=== PATIENT | female | born 1970 | race Caucasian/White ===

== ENCOUNTER 2017-01-16 19:39 | Emergency (ER) | payer MEDICAID ==
[~2017-01-16] VITALS: Wt 93.0 kg
[~2017-01-16 19:39] MED LIST: FOLI0.4T2 PO; IRON18TA PO
[2017-01-16 22:41] LABS: URINE BLOOD (Dip) POC 3+ (NEGATIVE)
[2017-01-16] MEDS ORDERED: SOD CHLORIDE 0.9% 1,000 ML IV STA (22:48)
[2017-01-16] MEDS ORDERED: KETOROLAC 30 MG INJ IV STA (22:48)
--- NOTE | 2017-01-16 23:34 | ERD ---
ER Documentation Chief Complaint Chief Complaint painful/ fequent urination, dribbling since 4 pm HPI 46-year-old female presents here to emergency department for complaints of right flank pain dysuria and hematuria that started today. Patient describes the pain as sharp pain, 8/10 scale, radiating to the right lower abdominal area. Patient denies any fever or chills. She also has history of kidney stones and ovarian cysts before. Patient denies being . Patient denies any fever or chills. ROS All systems reviewed and are negative except as per history of present illness. Medications Home Meds Reported Medications Iron (Iron) 18 Mg Tablet, 18 MG PO DAILY 04/04/11 Folic Acid* (Folic Acid*) 0.4 Mg Tablet, 0.4 MG PO DAILY 04/04/11 Allergies Allergies: Coded Allergies: No Known Allergy (Unverified , 01/16/17) PMhx/Soc Medical and Surgical Hx: pt denies Medical Hx, pt denies Surgical Hx History of Surgery: No Anesthesia Reaction: No Hx Neurological Disorder: No Hx Respiratory Disorders: No Hx Cardiac Disorders: No Hx Psychiatric Problems: No Hx Miscellaneous Medical Probl: No Hx Alcohol Use: No Hx Substance Use: No Hx Tobacco Use: No Smoking Status: Never smoker FmHx Family History: No coronary disease, No diabetes, No other Physical Exam Vitals Vital Signs Date Time Temp Pulse Resp B/P Pulse Ox O2 Delivery O2 Flow Rate FiO2 01/16/17 19:44 98.1 84 20 175/98 97 Physical Exam GENERAL: The patient is well developed and appropriate for usual state of health, in no apparent distress. CHEST: Clear to auscultation bilaterally. There are no rales, wheezes or rhonchi. HEART: Regular rate and rhythm. No murmurs, clicks, rubs or gallops. No S3 or S4. ABDOMEN: Soft, nontender and nondistended. Good bowel sounds. No rebound or guarding. No gross peritonitis. No gross organomegaly or masses. No Luis sign or McBurney point tenderness. BACK: No midline or flank tenderness. EXTREMITIES: Equal pulses bilaterally. There is no peripheral clubbing, cyanosis or edema. No focal swelling or erythema. Full range of motion. Grossly neurovascularly intact. NEURO: Alert and oriented. Cranial nerves 2-12 intact. Motor strength in all 4 extremities with 5/5 strength. Sensation grossly intact. Normal speech and gait. SKIN: There is no apparent rash or petechia. The skin is warm and dry. HEMATOLOGIC AND LYMPHATIC: There is no evidence of excessive bruising or lymphedema. No gross cervical, axillary, or inguinal lymphadenopathy. Result Diagram: 01/16/17229901/16/172299 Results 24 hrs Laboratory Tests Test 01/16/17 22:00 01/16/17 22:40 01/16/17 23:00 Urine Color BHUMI Urine Clarity CLOUDY Urine pH 5.0 Urine Specific [place] 1.026 Urine Ketones NEGATIVEmg/dL Urine Nitrite NEGATIVEmg/dL Urine Bilirubin NEGATIVEmg/dL Urine Urobilinogen NEGATIVEmg/dL Urine Leukocyte Esterase NEGATIVELeu/ul Urine Microscopic RBC > 182/HPF Urine Microscopic WBC 5/HPF Urine Squamous Epithelial Cells FEW/HPF Urine Calcium Oxalate Crystals MODERATE/HPF Urine Mucus FEW/HPF Urine Hemoglobin 3+mg/dL Urine Glucose 1+mg/dL Urine Total Protein 2+mg/dl Bedside Urine pH (LAB) 5.5 Bedside Urine Protein (LAB) 2+ Bedside Urine Glucose (UA) Negative Bedside Urine Ketones (LAB) Trace Bedside Urine Blood 3+ Bedside Urine Nitrite (LAB) Negative Bedside Urine Leukocyte Esterase (L Negative White Blood Count 14.010^3/ul Red Blood Count 4.4410^6/ul Hemoglobin 13.6g/dl Hematocrit 39.6% Mean Corpuscular Volume 89.2fl Mean Corpuscular Hemoglobin 30.6pg Mean Corpuscular Hemoglobin Concent 34.3g/dl Red Cell Distribution Width 12.4% Platelet Count 17798^3/UL Mean Platelet Volume 10.4fl Neutrophils % 84.5% Lymphocytes % 11.5% Monocytes % 3.1% Eosinophils % 0.1% Basophils % 0.4% Nucleated Red Blood Cells % 0.0/100WBC Neutrophils # 11.910^3/ul Lymphocytes # 1.610^3/ul Monocytes # 0.410^3/ul Eosinophils # 0.010^3/ul Basophils # 0.110^3/ul Nucleated Red Blood Cells # 0.010^3/ul Sodium Level 142mmol/L Potassium Level 4.6mmol/L Chloride Level 106mmol/L Carbon Dioxide Level 24mmol/L Anion Gap 17 Blood Urea Nitrogen 13mg/dl Creatinine 0.85mg/dl Glucose Level 130mg/dl Calcium Level 10.2mg/dl Total Bilirubin 0.5mg/dl Direct Bilirubin 0.00mg/dl Indirect Bilirubin 0.5mg/dl Aspartate Amino Transf (AST/SGOT) 39IU/L Alanine Aminotransferase (ALT/SGPT) 51IU/L Alkaline Phosphatase 171IU/L Total Protein 8.1g/dl Albumin 4.2g/dl Globulin 3.90g/dl Albumin/Globulin Ratio 1.07 Lipase 202U/L Current Medications Medications (Trade) Dose Ordered Sig/Loli Route PRN Reason Start Time Stop Time Status Last Admin Dose Admin Sodium Chloride (NS) 1,000 ml @ 1,000 mls/hr Q1H STAT IV 01/16/17 22:48 01/16/17 23:47 DC 01/16/17 23:28 Ketorolac Tromethamine (Toradol) 30 mg ONCE STAT IV 01/16/17 22:48 01/16/17 22:49 DC 01/16/17 23:29 Patient was given medication for pain here in emergency department, after treatment, patient verbalized feeling much better. Patient's pain is improved. PROCEDURE: US Pelvis. CLINICAL INDICATION: Abdominal pain TECHNIQUE: Multiple sonographic images of the pelvis were obtained utilizing a transabdominal and endovaginal technique. The images were reviewed on a PACS workstation. COMPARISON: CT abdomen and pelvis of 10/09/2013 FINDINGS: The uterus measures 8.6 x 4.4 x 5.4 cm and is unremarkable. The thickness of the endometrium equals 1.2 cm. The right ovary measures 2 x 1.3 x 2.4 cm and is unremarkable. The left ovary measures 2.8 x 1.8 x 3 cm and is unremarkable and contains a 2.2 cm follicle. Color flow and spectral analysis demonstrates normal arterial flow in both ovaries and normal venous flow in the left ovary. No adnexal mass or free intrapelvic fluid is seen. IMPRESSION: No abnormality seen. Please see above. RPTAT: HJES .Tobias Miller MD, Date Time Electronically viewed and signed by .Tobias Miller MD, on 01/17/2017 00:23 .S/ CC: ELANA EUBANKS PA-C PROCEDURE: CT Abdomen and pelvis without contrast. CLINICAL INDICATION: Abdominal pain. TECHNIQUE: CT scan of the abdomen and pelvis was performed on a multi- detector high-resolution CT scanner. Contiguous axial images were obtained from the lung bases to the ischial tuberosities without intravenous contrast. Coronal and sagittal reformatted images were also obtained. Images were reviewed on the PACS workstation. DICOM images are available. One or more of the following dose reduction techniques were used: - Automated exposure control. - Adjustment of the mA and/or kV according to patient size. - Use of iterative reconstruction technique. Exam CTD/vol = 19.13 mGy. Total exam DLP = 1202.82 mGy-cm. COMPARISON: 10/09/2013. FINDINGS: Evaluation of the lung bases demonstrates no pleural or parenchymal disease. Abdomen: The liver is normal in size and diffusely low in attenuation consistent with fatty infiltration. There is no focal mass or dilatation of the biliary tree. The gallbladder is not distended. The spleen, pancreas and bilateral adrenal glands are within normal limits. Bilateral kidneys are normal in size with no contour deforming mass identified. There is a 4 x 3 mm calculus within the lower pole of the left kidney. There are 1 mm calculi within the upper pole of the right kidney. There is a 2 mm calculus within the mid right kidney. There is no radiopaque ureteral calculus identified. There is minimal right-sided hydronephrosis with mild periureteral stranding. There is no retroperitoneal adenopathy. The abdominal aorta is of normal caliber. There is a small umbilical hernia containing fat. There is no bowel obstruction or free air. A normal appendix is identified. There are scattered sigmoid diverticuli without evidence of diverticulitis. There is no ascites. Pelvis: The bladder is unremarkable. The uterus and adnexa are within normal limits. There is a 5 x 3 mm calculus within the dependent bladder. There is no significant pelvic adenopathy or free fluid. Evaluation of the osseous structures demonstrates no suspicious lytic or blastic lesion. IMPRESSION: Bladder calculus measuring 5 x 3 mm likely represents a recently passed right renal calculus. There is minimal residual right-sided hydronephrosis. Bilateral renal calculi. Scattered sigmoid diverticuli without evidence of diverticulitis. Fatty infiltration of the liver. Small umbilical hernia containing fat. .Bennie Weeks MD, Date Time Electronically viewed and signed by .Bennie Weeks MD, MD on 01/17/2017 01:39 .T/ CC: ELANA EUBANKS PA-C for text Procedures/MDM Medical Decision Making: Patient symptoms was likely is consistent with renal colic, no stone was noted and there is mild hydronephrosis consistent with this. No symptoms of any septic stone. There is low suspicion for abdominal emergencies at this time. Patients abdominal exam is normal at this time. Patients radiology exam does not show any abdominal emergencies at this time. There is low suspicion for appendicitis, cholecystitis, abdominal aortic aneurysms or peritonitis at this time. There is low suspicion for sepsis. Patient appears well and is hemodynamically stable. Disposition: Home. Condition: Stable Prescription [place], Zofran, ibuprofen, Pyridium Instructions: Patient is advised to take medications as prescribed. Patient is advised to rest, increase fluid intake and do brat diet for next 1-2 days and progress as tolerated. Patient is advised that if symptoms are worse, severe abdominal pain, uncontrolled vomiting, high fever, severe flank pain, worst signs and symptoms, to return to the emergency department immediately. Otherwise, patient can follow up with primary care doctor in 5-7 days. Disclaimer: Inadvertent spelling and grammatical errors are likely due to EHR/ dictation software use and do not reflect on the overall quality of patient care. Also, please note that the electronic time recorded on this note does not necessarily reflect the actual time of the patient encounter. Departure Diagnosis: Primary Impression: Renal colic on right side Condition: Stable Patient Instructions: Kidney Stone, Passed Additional Instructions: Patient is advised to take medications as prescribed. Patient is advised to rest, increase fluid intake and do brat diet for next 1-2 days and progress as tolerated. Patient is advised that if symptoms are worse, severe abdominal pain , uncontrolled vomiting, high fever, severe flank pain, worst signs and symptoms , to return to the emergency department immediately. Otherwise, patient can follow up with primary care doctor in 5-7 days. SARA PETIT NP Jan 16, 2017 23:34
[2017-01-16 23:35] LABS: BASOPHIL # 0.1 10^3/ul (0.0-0.1); BASOPHILS % 0.4 % (0.0-2.0); EOSINOPHILS % 0.1 % (0.0-7.0); HEMATOCRIT 39.6 % (37.0-47.0); HEMOGLOBIN 13.6 g/dl (12.0-16.0); LYMPHOCYTES # 1.6 10^3/ul (0.8-2.9); LYMPHOCYTES % 11.5 % (15.0-51.0); MEAN CORPUSCULAR HEMOGLOBIN 30.6 pg (29.0-33.0); MEAN CORPUSCULAR HGB CONC 34.3 g/dl (32.0-37.0); MEAN CORPUSCULAR VOLUME 89.2 fl (82.0-101.0); MEAN PLATELET VOLUME 10.4 fl (7.4-10.4); MONOCYTE # 0.4 10^3/ul (0.3-0.9); MONOCYTES % 3.1 % (0.0-11.0); NEUTROPHIL # 11.9 10^3/ul (1.6-7.5); NEUTROPHILS % 84.5 % (39.0-77.0); PLATELET COUNT 290 10^3/UL (140-415); RED BLOOD COUNT 4.44 10^6/ul (4.20-5.40); RED CELL DISTRIBUTION WIDTH 12.4 % (11.5-14.5)
[2017-01-16 23:56] LABS: ADD UMIC YES; UR ASCORBIC ACID NEGATIVE (NEGATIVE); UR BILIRUBIN (Dip) NEGATIVE (NEGATIVE); UR BLOOD (Dip) 3+ mg/dL (NEGATIVE); UR CLARITY CLOUDY (CLEAR); UR COLOR AMBER (YELLOW); UR GLUCOSE (Dip) 1+ mg/dL (NEGATIVE); UR KETONES (Dip) NEGATIVE (NEGATIVE); UR LEUKOCYTE ESTERASE (Dip) NEGATIVE Leu/ul (NEGATIVE); UR MUCUS FEW /HPF (NONE SEEN); UR NITRITE (Dip) NEGATIVE (NEGATIVE); UR RBC > 182 /HPF (0-5); UR SPECIFIC GRAVITY (Dip) 1.026 (1.003-1.030); UR SQUAMOUS EPITHELIAL CELL FEW /HPF (FEW); UR TOTAL PROTEIN (Dip) 2+ mg/dl (NEGATIVE); UR UROBILINOGEN (Dip) NEGATIVE (NEGATIVE)
[2017-01-17 00:16] LABS: ALBUMIN 4.2 g/dl (3.3-4.9); ALBUMIN/GLOBULIN RATIO 1.07; BILIRUBIN,INDIRECT 0.5 mg/dl (0-1.1); BILIRUBIN,TOTAL 0.5 mg/dl (0.2-1.3); CALCIUM 10.2 mg/dl (8.4-10.2); CREATININE 0.85 mg/dl (0.44-1.00); POTASSIUM 4.6 mmol/L (3.5-5.1); TOTAL PROTEIN 8.1 g/dl (6.1-8.1)
--- NOTE | 2017-01-17 00:24 | RADRPT ---
PROCEDURE: US Pelvis. CLINICAL INDICATION: Abdominal pain TECHNIQUE: Multiple sonographic images of the pelvis were obtained utilizing a transabdominal and endovaginal technique. The images were reviewed on a PACS workstation. COMPARISON: CT abdomen and pelvis of 10/09/2013 FINDINGS: The uterus measures 8.6 x 4.4 x 5.4 cm and is unremarkable. The thickness of the endometrium equals 1.2 cm. The right ovary measures 2 x 1.3 x 2.4 cm and is unremarkable. The left ovary measures 2.8 x 1.8 x 3 cm and is unremarkable and contains a 2.2 cm follicle. Color flow and spectral analysis d emonstrates normal arterial flow in both ovaries and normal venous flow in the left ovary. No adnex al mass or free intrapelvic fluid is seen. IMPRESSION: No abnormality seen. Please see above. RPTAT: HJES .Tobias Miller MD, MD Date Time Electronically viewed and signed by .Tobias Miller MD, on 01/17/2017 00:23 .S/
--- NOTE | 2017-01-17 01:40 | RADRPT ---
PROCEDURE: CT Abdomen and pelvis without contrast. CLINICAL INDICATION: Abdominal pain. TECHNIQUE: CT scan of the abdomen and pelvis was performed on a multi-detector high-resolution CT scanner. Contiguous axial images were obtained from the lung bases to the ischial tuberosities wit hout intravenous contrast. Coronal and sagittal reformatted images were also obtained. Images were reviewed on the PACS workstation. DICOM images are available. One or more of the following dose reduction techniques were used: - Automated exposure control. - Adjustment of the mA and/or kV according to patient size. - Use of iterative reconstruction technique. Exam CTD/vol = 19.13 mGy. Total exam DLP = 1202.82 mGy-cm. COMPARISON: 10/09/2013. FINDINGS: Evaluation of the lung bases demonstrates no pleural or parenchymal disease. Abdomen: The liver is normal in size and diffusely low in attenuation consistent with fatty infiltr ation. There is no focal mass or dilatation of the biliary tree. The gallbladder is not distended. The spleen, pancreas and bilateral adrenal glands are within normal limits. Bilateral kidneys are normal in size with no contour deforming mass identified. There is a 4 x 3 mm calculus within the lower pole of the left kidney. There are 1 mm calculi within the upper pole of the right kidney. The re is a 2 mm calculus within the mid right kidney. There is no radiopaque ureteral calculus identifi ed. There is minimal right-sided hydronephrosis with mild periureteral stranding. There is no retro peritoneal adenopathy. The abdominal aorta is of normal caliber. There is a small umbilical hernia containing fat. There is no bowel obstruction or free air. A nor mal appendix is identified. There are scattered sigmoid diverticuli without evidence of diverticuli tis. There is no ascites. Pelvis: The bladder is unremarkable. The uterus and adnexa are within normal limits. There is a 5 x 3 mm calculus within the dependent bladder. There is no significant pelvic adenopathy or free fl uid. Evaluation of the osseous structures demonstrates no suspicious lytic or blastic lesion. IMPRESSION: Bladder calculus measuring 5 x 3 mm likely represents a recently passed right renal calculus. There is minimal residual right-sided hydronephrosis. Bilateral renal calculi. Scattered sigmoid diverticuli without evidence of diverticulitis. Fatty infiltration of the liver. Small umbilical hernia containing fat. .Bennie Weeks MD, MD Date Time Electronically viewed and signed by .Bennie Weeks MD, MD on 01/17/2017 01:39 .T/
[2017-01-17] MEDS ORDERED: PHEN-538 PO (02:17)
[2017-01-17] MEDS ORDERED: TAMS-14 PO (02:17)
[2017-01-17] MEDS ORDERED: HYDR-906 PO (02:17)
[2017-01-17] MEDS ORDERED: IBUP-1542 PO (02:17)
[2017-01-17] MEDS ORDERED: ONDA4TAB14 PO (02:17)
== END 2017-01-17 02:47 | disposition home or self-care (01) ==
LOC: FTE 19:39
DX: N23 Unspecified renal colic (principal)
CPT/HCPCS: 36415; 74176; 76830; 76856; 80053; 81001; 81003; 83690; 85025; 87086; 96374; J1885; J7030; Z7502

== ENCOUNTER 2017-07-28 03:19 | Emergency (ER) | END 2017-07-28 06:33 | disposition home or self-care (01) ==

== ENCOUNTER 2017-09-21 21:31 | Emergency (ER) | END 2017-09-21 23:40 | disposition home or self-care (01) ==

== ENCOUNTER 2017-12-20 09:50 | Emergency (ER) | END 2017-12-20 11:54 | disposition home or self-care (01) ==

== ENCOUNTER 2018-02-11 18:20 | Emergency (ER) | payer MEDICAID ==
[~2018-02-11] VITALS: Ht 172.7 cm; Wt 95.0 kg
[~2018-02-11 18:20] MED LIST changes: +AMOX500C2 PO; +CEPH-443 PO; +HYDR-4011 PO; +IBUP-1542 PO; +NPH10OT RIGHT EAR; +ONDA4TAB14 PO; +PHEN-538 PO; +TAMS-14 PO
[2018-02-11 18:48] VITALS: Ht 172.7 cm; Wt 95.0 kg
[2018-02-11] MEDS ORDERED: morphine 4 MG/ML VIAL IV STA (20:43)
[2018-02-11] MEDS ORDERED: SOD CHLORIDE 0.9% 1,000 ML IV STA (20:43)
[2018-02-11] MEDS ORDERED: ONDANSETRON 4 MG INJ IV STA (20:43)
--- NOTE | 2018-02-11 21:17 | ERD ---
ER Documentation Chief Complaint Chief Complaint RUQ PAIN X WITH VOMITING X 5 DAYS HPI This patient is a 47-year-old female With past medical history of kidney stones, presenting to the emergency department complaining of right lower quadrant pain for the past 3 days. Patient seen here approximately 2 months ago and was diagnosed with kidney stones. She states the pain she is feeling now is very different. She denies any radiation of the pain. The pain is intermittent and rated 8/10 in severity. She had 3 episodes of nonbilious and nonbloody vomiting which began today. She took Advil with some relief. She has also had diarrhea. She denies any fevers or chills or other symptoms at this time. ROS All systems reviewed and are negative except as per history of present illness. Medications Home Meds Active Scripts Bismuth Subsalicylate* (Bismuth Subsalicylate*) 262 Mg/15 Ml Oral.susp, 15 ML PO Q6 PRN for DIARRHEA, #150 ML Prov:CAROLINE QUINONES PA-C 02/11/18 Ondansetron (Ondansetron Odt) 4 Mg Tab.rapdis, 4 MG PO Q6H PRN for NAUSEA AND/OR VOMITING, #10 TAB Prov:CAROLINE QUINONES PA-C 02/11/18 Naproxen* (Naprosyn*) 500 Mg Tablet, 500 MG PO BID PRN for PAIN AND/OR INFLAMMATION, #30 TAB Prov:CAROLINE QUINONES PA-C 02/11/18 Ondansetron (Ondansetron Odt) 4 Mg Tab.rapdis, 4 MG PO Q6H PRN for NAUSEA AND/OR VOMITING, #20 TAB Prov:LALO DIALLO PA-C 12/20/17 Hydrocodone/Acetaminophen ([place] 5-325 Tablet) 1 Each Tablet, 1 TAB PO Q6H PRN for PAIN, #20 TAB Prov:LALO DIALLO PA-C 12/20/17 Cephalexin* (Keflex*) 500 Mg Capsule, 500 MG PO TID for 10 Days, CAP Prov:LALO DIALLO PA-C 12/20/17 Neomycin/Polymyxin/Hydrocort* (Cortisporin* Otic) 10 Ml Susp, 4 DROP RIGHT EAR QID for 7 Days, EA Prov:CHEVY GARZA MD 09/21/17 Ibuprofen* (Motrin*) 600 Mg Tab, 600 MG PO Q8, #15 TAB Prov:CHEVY GARZA MD 09/21/17 Amoxicillin* (Amoxicillin*) 500 Mg Cap, 500 MG PO TID for 10 Days, CAP Prov:CHEVY GARZA MD 09/21/17 Ibuprofen* (Motrin*) 600 Mg Tab, 600 MG PO Q6H PRN for PAIN AND OR ELEVATED TEMP, #30 TAB Prov:JANIE VAZQUEZ PA-C 07/28/17 Tamsulosin Hcl* (Flomax*) 0.4 Mg Cap.er.24h, 0.4 MG PO BID, #30 CAP Prov:JANIE VAZQUEZ PA-C 07/28/17 Ondansetron (Ondansetron Odt) 4 Mg Tab.rapdis, 4 MG PO Q6H PRN for NAUSEA AND/OR VOMITING, #10 TAB Prov:SARA PETIT NP 01/17/17 Tamsulosin Hcl* (Flomax*) 0.4 Mg Cap.er.24h, 0.4 MG PO BID, #30 CAP Prov:SARA PETIT NP 01/17/17 Phenazopyridine Hcl* (Pyridium*) 200 Mg Tab, 200 MG PO TID PRN for URINARY PAIN, #6 TAB Prov:SARA PETIT NP 01/17/17 Hydrocodone/Acetaminophen ([place] 5-325 Tablet) 1 Each Tablet, 1 TAB PO Q6H PRN for SEVERE PAIN LEVEL 7-10, #20 TAB Prov:SARA PETIT NP 01/17/17 Ibuprofen* (Motrin*) 600 Mg Tab, 600 MG PO Q6H PRN for PAIN AND OR ELEVATED TEMP, #30 TAB Prov:SARA PETIT NP 01/17/17 Reported Medications Iron (Iron) 18 Mg Tablet, 18 MG PO DAILY 04/04/11 Folic Acid* (Folic Acid*) 0.4 Mg Tablet, 0.4 MG PO DAILY 04/04/11 Allergies Allergies: Coded Allergies: No Known Allergy (Unverified , 01/16/17) PMhx/Soc History of Surgery: Yes ( x2) Anesthesia Reaction: No Hx Neurological Disorder: No Hx Respiratory Disorders: No Hx Cardiac Disorders: No Hx Psychiatric Problems: No Hx Miscellaneous Medical Probl: No Hx Alcohol Use: No Hx Substance Use: No Hx Tobacco Use: No Smoking Status: Never smoker FmHx Family History: No diabetes Physical Exam Vitals Vital Signs Date Temp Pulse Resp B/P (MAP) Pulse Ox O2 O2 Flow FiO2 Time Delivery Rate 02/11/18 98.2 62 18 117/61 98 Room Air 22:18 (79) 02/11/18 98.6 75 18 176/78 98 18:48 (110) Physical Exam Const: No acute distress Head: Atraumatic Eyes: Normal Conjunctiva ENT: Normal External Ears, Nose and Mouth. Neck: Full range of motion. No meningismus. Resp: Clear to auscultation bilaterally Cardio: Regular rate and rhythm, no murmurs Abd: Soft, tenderness to palpation with mild rebound of the right lower quadrant, no Luis sign, non distended. Normal bowel sounds Skin: No petechiae or rashes Ext: No cyanosis, or edema Neur: Awake and alert Psych: Normal Mood and Affect Result Diagram: 02/11/18205202/11/182052 Results 24 hrs Laboratory Tests Test 02/11/18 20:53 02/11/18 21:00 White Blood Count 8.5 10^3/ul Red Blood Count 4.64 10^6/ul Hemoglobin 13.7 g/dl Hematocrit 41.4 % Mean Corpuscular Volume 89.2 fl Mean Corpuscular Hemoglobin 29.5 pg Mean Corpuscular Hemoglobin Concent 33.1 g/dl Red Cell Distribution Width 12.6 % Platelet Count 267 10^3/UL Mean Platelet Volume 10.1 fl Immature Granulocytes % 0.400 % Neutrophils % 42.6 % Lymphocytes % 47.6 % Monocytes % 6.7 % Eosinophils % 2.1 % Basophils % 0.6 % Nucleated Red Blood Cells % 0.0 /100WBC Immature Granulocytes # 0.030 10^3/ul Neutrophils # 3.6 10^3/ul Lymphocytes # 4.1 10^3/ul Monocytes # 0.6 10^3/ul Eosinophils # 0.2 10^3/ul Basophils # 0.1 10^3/ul Nucleated Red Blood Cells # 0.0 10^3/ul Prothrombin Time 12.2 Sec Prothrombin Time Ratio 1.0 INR International Normalized Ratio 0.90 Activated Partial Thromboplast Time 29.0 Sec Urine Color YELLOW Urine Clarity SLIGHTLY CLOUDY Urine pH 5.0 Urine Specific [place] 1.024 Urine Ketones NEGATIVE mg/dL Urine Nitrite NEGATIVE mg/dL Urine Bilirubin NEGATIVE mg/dL Urine Urobilinogen NEGATIVE mg/dL Urine Leukocyte Esterase NEGATIVE Valorie/ul Urine Microscopic RBC 6 /HPF Urine Microscopic WBC 5 /HPF Urine Squamous Epithelial Cells MODERATE /HPF Urine Bacteria FEW /HPF Urine Mucus FEW /HPF Urine Hemoglobin 2+ mg/dL Urine Glucose NEGATIVE mg/dL Urine Total Protein NEGATIVE mg/dl Sodium Level 140 mmol/L Potassium Level 3.6 mmol/L Chloride Level 102 mmol/L Carbon Dioxide Level 31 mmol/L Anion Gap 7 Blood Urea Nitrogen 13 mg/dl Creatinine 0.67 mg/dl Est Glomerular Filtrat Rate mL/min > 60 mL/min Glucose Level 106 mg/dl Calcium Level 9.9 mg/dl Total Bilirubin 0.4 mg/dl Direct Bilirubin 0.00 mg/dl Indirect Bilirubin 0.4 mg/dl Aspartate Amino Transf (AST/SGOT) 82 IU/L Alanine Aminotransferase (ALT/SGPT) 79 IU/L Alkaline Phosphatase 112 IU/L Total Protein 7.5 g/dl Albumin 4.2 g/dl Globulin 3.30 g/dl Albumin/Globulin Ratio 1.27 Lipase 254 U/L POC Beta HCG, Qualitative NEGATIVE Current Medications Medications Dose Sig/Loli Start Time Status Last (Trade) Ordered Route PRN Stop Time Admin Dose Reason Admin Sodium 1,000 ml @ Q1H STAT 02/11/18 DC 02/11/18 Chloride 1,000 mls/hr IV 20:43 21:02 02/11/18 21:42 Morphine 4 mg ONCE STAT 02/11/18 DC 02/11/18 Sulfate IV 20:43 21:01 (morphine) 02/11/18 20:44 Ondansetron 4 mg ONCE STAT 02/11/18 DC 02/11/18 HCl (Zofran IV 20:43 21:01 Inj) 02/11/18 20:[address] [address] Radiology Main Line: [phone] DIAGNOSTIC IMAGING REPORT Patient: LALITHA RATLIFF : 1970 Age: 47 Sex: F MR #: [id number] [facility] #: [id number] DOS: 02/11/18 2043 Ordering MD: CAROLINE UQINONES PA-C Location: [facility] Room/Bed: PROCEDURE: CT abdomen and pelvis without contrast. CLINICAL INDICATION: Abdominal pain. TECHNIQUE: CT scan of the abdomen and pelvis without contrast was performed on a multi-slice CT scanner . Sagittal and coronal reformatted images were obtained from the axial source images. One or more of the following dose reduction techniques were used: - Automated exposure control. - Adjustment of the mA and/or kV according to patient size. - Use of iterative reconstruction technique. DICOM images are available DLP 1226.65 mGycm. CTDIvol 20.88 mGy COMPARISON: 12/20/2017 FINDINGS: Fine detail of the soft tissues is limited secondary to the lack of IV contrast. Evaluation for enhancing lesions cannot be performed. Lower thorax:The lung bases are clear. Liver: There is hepatomegaly and fatty infiltration of the liver with no gross focal lesion. Biliary: The gallbladder is unremarkable without surrounding inflammation. No biliary dilatation. Pancreas: Homogeneous density of the pancreas without visible focal lesion or cystic abnormality. There is no pancreatic ductal dilatation. Spleen: Unremarkable without enlargement or focal lesion. Adrenal Glands: The adrenal glands are within normal limits without mass. 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 Bilateral small nonobstructing renal calculi are seen measuring up to 3 mm at the left lower pole and up to 2 mm at the right lower pole. There is no hydronephrosis. There are no visible ureteral stones. Delete the Gastrointestinal: No evidence of bowel obstruction or inflammation. There is no appendicitis. There is diverticulosis without diverticulitis. Lymph nodes: There are no enlarged lymph nodes. Vascular: The aorta is unremarkable. Peritoneum/mesentery: No free fluid or free air. Reproductive organs: The uterus and adnexal structures are grossly within normal limits. Musculoskeletal: Degenerative changes are seen in the lumbar spine with no acute osseous abnormality Other: None IMPRESSION: Bilateral small nonobstructing renal calculi are seen without evidence of ureteral stones or hydronephrosis. Hepatomegaly and fatty liver. No evidence of bowel obstruction or inflammation. There is no appendicitis. There is diverticulosis without diverticulitis. RPTAT: AA .Carmina Fried MD, MD Date Time Electronically viewed and signed by .Carmina Fried MD, MD on 02/11/2018 21:45 .J/ CC: CAROLINE QUINONES MANI [phone] Procedures/MDM ER COURSE: Patient is a pleasant 47-year-old female presented to the emergency department complaining of right lower quadrant pain. Patient was administered IV morphine, IV fluids, IV Zofran with good response. Patient remained hemodynamically stable during her ED course with no new complaints. She was improved on reevaluation LABS: CBC: no e/o of systemic infection or severe anemia CMP: no e/o severe acidosis, alkalosis, renal failure, diabetic ketoacidosis, liver disease Lipase: no e/o pancreatitis Urine: no e/o acute infection or hematuria IMAGING: CT abdomen and pelvis without contrast showed normal appendix and bilateral nonobstructing kidney stones. Full report from the radiologist may be viewed above. MEDICAL DECISION MAKING: Patient symptoms are most consistent with renal colic. Other differential diagnoses included but were not limited to acute surgical abdomen, acute appendicitis, acute cholecystitis, urinary tract infection, and others. No obvious evidence of emergent or life threatening pathology. Patient will be discharged home with prescriptions for bismuth subsalicylate, Zofran, naproxen. The patient agreed with the diagnosis, plan, need for follow-up, return precautions. Pt/family advised to return immediately with any new or worsening symptoms. Follow-up with primary care physician within the next 1-2 days. Disclaimer: Inadvertent spelling and grammatical errors are likely due to EHR/dictation software use and do not reflect on the overall quality of patient care. Also, please note that the electronic time recorded on this note does not necessarily reflect the actual time of the patient encounter. Departure Diagnosis: Primary Impression: Abdominal pain Abdominal location: right lower quadrant Qualified Codes: R10.31 - Right lower quadrant pain Condition: Fair Patient Instructions: Abdominal Pain Additional Instructions: Muchas darlene por [facility] para chacon servicio. Esperamos que en chacon visita a la vania de emergencia chacon problema medico haya sido solucionado y que se sienta mucho mejor. Para estar seguros que chacon mejoria sigue en proceso, le pedimos el favor de hacer uriel osorio de seguimiento medico con chacon doctor primario en los proximos 2-4 biggs. Lleve con usted estos documentos y las medicinas recetadas. Si ashlee sintomas empeoran, NO SE ESPERE, por favor regrese a vania de emergencia INMEDIATAMENTE. En soumya que usted no tenga un mdico de atencin primaria: Llame al mdico o clnica comunitaria de referencia que aparece abajo mehreen las horas de consultorio para hacer uriel osorio para que le vean. CLINICAS: [facility] [phone] [facility] [phone] [facility] [phone] [facility]. [facility] [phone] [place] [id number] [phone] [facility]. [phone] CAROLINE JOSEPH PA-C Feb 11, 2018 21:14
[2018-02-11] MEDS ORDERED: BISM-34 PO (21:54)
[2018-02-11] MEDS ORDERED: NAPR-985 PO (21:54)
[2018-02-11] MEDS ORDERED: ONDA4TAB14 PO (21:54)
[2018-02-11 22:18] VITALS: BP 117/61; PULSE 62; RESP 18
== END 2018-02-11 22:20 | disposition home or self-care (01) ==
LOC: FTE 18:20
DX: R10.11 Right upper quadrant pain (principal); R11.10 Vomiting, unspecified
CPT/HCPCS: 36415; 74176; 80053; 81001; 81025; 83690; 85025; 85610; 85730; 96374; 96375; J2270; J2405; J7030; Z7502